=== PATIENT | female | born 1985 | race African-American/Black ===

== ENCOUNTER 2016-05-01 21:14 | Emergency (ER) | payer MEDICAID ==
[~2016-05-01] VITALS: Ht 170.2 cm; Wt 77.3 kg
[~2016-05-01 21:14] MED LIST: DOXYCYCLINE 10100 MG PO; FLAGYL500 MG PO
[2016-05-01 21:16] VITALS: BP 118/85; PULSE 62; TEMP 97.8
[2016-05-01 21:47] LABS: BASO % 0.6 % (0.0-2.0); EOS # 0.1 (0.0-0.7); EOS % 1.5 % (0-4.0); GRAN # 2.6 (1.4-6.5); HEMOGLOBIN 11.6 g/dl (12.5-16.0); LYMPH # 2.3 (1.2-3.4); LYMPH % 42.5 % (20.0-51.0); MEAN CELL VOLUME 90 fl (80.0-100.0); MEAN CORPUSCULAR HEMOGLOBIN 30 pg (27.0-31.0); MEAN CORPUSCULAR HGB CONC 33 g/dl (33.0-37.0); MEAN PLATELET VOLUME 10.6 fl (7.4-10.4); MONO # 0.4 (0.1-0.6); PLATELET COUNT 184 K/mm3 (130-400); RED BLOOD COUNT 3.87 M/mm3 (4.10-5.30); REDCELL DISTRIBUTION WIDTH-CV 11.8 % (11.5-14.5); WHITE BLOOD COUNT 5.4 K/mm3 (4.8-10.8)
[2016-05-01 21:57] LABS: ADJUSTED CALCIUM 9.3 mg/dL (8.4-10.2); ALBUMIN 4.1 gm/dL (3.5-5.0); BILIRUBIN,TOTAL 0.7 mg/dL (0.0-1.0); CALCIUM 9.4 mg/dL (8.4-10.2); CREATININE, serum 0.86 mg/dL (0.52-1.25); POTASSIUM 3.7 mmol/L (3.4-5.0); TOTAL PROTEIN 7.3 gm/dL (6.4-8.2)
== END 2016-05-01 22:25 | disposition home or self-care (01) ==
LOC: COL.ER 21:14
PROVIDERS: Physician Assistant
DX: N92.0 Excessive and frequent menstruation with regular cycle (principal); Z32.02 Encounter for pregnancy test, result negative

== ENCOUNTER 2016-07-16 14:57 | Emergency (ER) | payer MEDICAID ==
[~2016-07-16] VITALS: Ht 170.2 cm; Wt 72.7 kg
[2016-07-16 15:02] VITALS: BP 111/64; PULSE 55; TEMP 98.1
[2016-07-16 15:34] LABS: PH 7 (5-8); URINE APPEARANCE Hazy; URINE BILIRUBIN Negative (NEGATIVE); URINE BLOOD 3+ (NEGATIVE); URINE COLOR Yellow; URINE GLUCOSE Negative (NEGATIVE); URINE KETONE Negative (NEGATIVE); URINE UROBILINOGEN Negative (NEGATIVE)
[2016-07-16 15:40] LABS: SQUAMOUS EPITHELIAL 0-2 /hpf; URINE WBC >50 /hpf
[2016-07-16] MEDS ORDERED: CEFTIN500 MG PO (15:44)
[2016-07-16] MEDS ORDERED: PYRIDIUM200 M1 PO (15:44)
== END 2016-07-16 16:11 | disposition home or self-care (01) ==
LOC: COL.ER 14:57
PROVIDERS: Emergency Medicine
DX: N39.0 Urinary tract infection, site not specified (principal)
CPT/HCPCS: J0696

== ENCOUNTER 2016-08-24 20:18 | Emergency (ER) | payer MEDICAID ==
[~2016-08-24] VITALS: Ht 170.2 cm; Wt 75.0 kg
[~2016-08-24 20:18] MED LIST changes: +CEFTIN500 MG PO; +PYRIDIUM200 M1 PO
[2016-08-24 20:20] VITALS: TEMP 97.9
[2016-08-24 20:49] LABS: BASO % 0.5 % (0.0-2.0); EOS # 0.1 (0.0-0.7); EOS % 1.1 % (0-4.0); GRAN # 2.5 (1.4-6.5); GRAN % 41.1 % (42.2-75.2); HEMATOCRIT 36.9 % (37.0-47.0); HEMOGLOBIN 12.4 g/dl (12.5-16.0); LYMPH % 49.1 % (20.0-51.0); MEAN CELL VOLUME 90 fl (80.0-100.0); MEAN CORPUSCULAR HEMOGLOBIN 30 pg (27.0-31.0); MEAN CORPUSCULAR HGB CONC 34 g/dl (33.0-37.0); MEAN PLATELET VOLUME 11.4 fl (7.4-10.4); MONO # 0.5 (0.1-0.6); PLATELET COUNT 185 K/mm3 (130-400); REDCELL DISTRIBUTION WIDTH-CV 12.4 % (11.5-14.5); WHITE BLOOD COUNT 6.1 K/mm3 (4.8-10.8)
[2016-08-24] MEDS ORDERED: ULTRAM 50MG TAB50 MG PO (21:09)
[2016-08-24] MEDS ORDERED: ZOFRAN8 MG PO (21:09)
[2016-08-24 21:34] LABS: ADJUSTED CALCIUM 9.1 mg/dL (8.4-10.2); ALBUMIN 4.4 gm/dL (3.5-5.0); BILIRUBIN,TOTAL 0.7 mg/dL (0.0-1.0); CALCIUM 9.4 mg/dL (8.4-10.2); CREATININE, serum 0.9 mg/dL (0.52-1.25); POTASSIUM 4.2 mmol/L (3.4-5.0); TOTAL PROTEIN 7.4 gm/dL (6.4-8.2)
[2016-08-24 22:01] LABS: PH 5 (5-8); URINE APPEARANCE Clear; URINE BACTERIA None Seen /hpf; URINE BILIRUBIN Negative (NEGATIVE); URINE BLOOD 3+ (NEGATIVE); URINE COLOR Yellow; URINE GLUCOSE Negative (NEGATIVE); URINE KETONE Negative (NEGATIVE); URINE RBC >50 /hpf; URINE UROBILINOGEN Negative (NEGATIVE)
[2016-08-24 22:28] VITALS: BP 124/70; PULSE 64
== END 2016-08-24 22:30 | disposition home or self-care (01) ==
LOC: COL.ER 20:18
PROVIDERS: Emergency Medicine
DX: R10.32 Left lower quadrant pain (principal); R51 Headache
CPT/HCPCS: J1885; J2405; J7030

== ENCOUNTER 2016-08-28 20:12 | Emergency (ER) | payer MEDICAID ==
[~2016-08-28] VITALS: Ht 170.2 cm; Wt 75.0 kg
[~2016-08-28 20:12] MED LIST changes: +ULTRAM 50MG TAB50 MG PO; +ZOFRAN8 MG PO
[2016-08-28 20:14] VITALS: BP 121/71; PULSE 63; TEMP 98.1
[2016-08-28 20:51] LABS: PH 5 (5-8); SQUAMOUS EPITHELIAL 0-2 /hpf; URINE APPEARANCE Clear; URINE BACTERIA None Seen /hpf; URINE BILIRUBIN Negative (NEGATIVE); URINE BLOOD 1+ (NEGATIVE); URINE COLOR Yellow; URINE GLUCOSE Negative (NEGATIVE); URINE KETONE Negative (NEGATIVE); URINE WBC 0-2 /hpf
[2016-08-28] MEDS ORDERED: METROGEL-VAGINA0.75% VG (21:39)
[2016-08-29 02:06] LABS: CHLAMYDIA/TRACH by PCR Female NOT DETECTED; NEISSERIA GON by PCR Female NOT DETECTED
== END 2016-08-28 21:47 | disposition home or self-care (01) ==
LOC: COL.ER 20:12
PROVIDERS: Emergency Medicine
DX: N76.0 Acute vaginitis (principal); B96.89 Other specified bacterial agents as the cause of diseases classified elsewhere

== ENCOUNTER 2018-12-03 18:55 | Emergency (ER) | payer SELFPAY ==
[~2018-12-03] VITALS: Ht 170.2 cm; Wt 72.7 kg
[~2018-12-03 18:55] MED LIST changes: +METROGEL-VAGINA0.75% VG
[2018-12-03 19:02] VITALS: BP 150/86; TEMP 98
[2018-12-03 19:56] VITALS: PULSE 63
== END 2018-12-03 19:56 | disposition home or self-care (01) ==
LOC: COL.ER 18:55
DX: R10.2 Pelvic and perineal pain (principal)

== ENCOUNTER 2020-10-29 10:14 | Emergency (ER) | payer BC ==
[~2020-10-29] VITALS: Ht 170.2 cm; Wt 77.3 kg
[2020-10-29 11:35] VITALS: BP 130/78; PULSE 75; TEMP 98.3
== END 2020-10-29 11:35 | disposition home or self-care (01) ==
LOC: COL.ER 10:14
DX: F32.9 Major depressive disorder, single episode, unspecified (principal)

== ENCOUNTER 2023-08-27 13:53 | Emergency (ER) | payer SELFPAY ==
[~2023-08-27] VITALS: Ht 167.6 cm; Wt 86.4 kg
[2023-08-27 14:01] VITALS: TEMP 97.5
[2023-08-27 14:34] LABS: BASO % 0.4 % (0.0-2.0); EOS # 0.1 K/mm3 (0.0-0.7); GRAN % 53.9 % (42.2-75.2); HEMATOCRIT 39.6 % (37.0-47.0); HEMOGLOBIN 13.1 g/dl (12.5-16.0); LYMPH % 35.4 % (20.0-51.0); MEAN CELL VOLUME 92 fl (80.0-100.0); MEAN CORPUSCULAR HEMOGLOBIN 30 pg (27-31); MEAN CORPUSCULAR HGB CONC 33 g/dl (33.0-37.0); MEAN PLATELET VOLUME 10.6 fl (7.4-10.4); MONO # 0.4 K/mm3 (0.1-0.6); MONO % 7.9 % (1.7-9.3); PLATELET COUNT 232 K/mm3 (130-400); RED BLOOD COUNT 4.31 M/mm3 (4.10-5.30)
[2023-08-27 14:49] LABS: ALANINE AMINOTRANSFERASE 15 U/L (0-55); ALBUMIN 4.4 g/dL (3.5-5.0); ALKALINE PHOSPHATASE 50 U/L (40-150); ANION GAP 10 mmol/L (7-16); AST,SGOT 15 U/L (5-34); BILIRUBIN,TOTAL 0.7 mg/dL (0.2-1.2); BLOOD UREA NITROGEN 12 mg/dL (7-19); CALCIUM 9.2 mg/dL (8.4-10.2); CHLORIDE 107 mEq/L (98-107); CREATININE, serum 1.03 mg/dL (0.57-1.11); GLUCOSE 94 mg/dL (70-99); POTASSIUM 3.9 mEq/L (3.5-4.5); SODIUM 140 mEq/L (136-145); TOTAL PROTEIN 7.7 g/dl (6.2-8.1)
[2023-08-27 14:55] LABS: TROPONIN-I < 0.010 ng/mL (0.00-0.033)
[2023-08-27] MEDS ORDERED: Ketorolac 15 MG/ML VIAL IV ONE (15:15)
[2023-08-27 16:00] VITALS: BP 114/68; PULSE 51
[2023-08-27 16:56] LABS: LIPASE 27 U/L (8-78)
== END 2023-08-27 16:00 | disposition home or self-care (01) ==
LOC: COL.ER 13:53
PROVIDERS: Physician Assistant
DX: M94.0 Chondrocostal junction syndrome [Tietze] (principal)
CPT/HCPCS: J1885